=== PATIENT | male | born 1955 | race Caucasian/White ===

== ENCOUNTER 2020-03-18 07:10 | Day surgery (SDC) | payer MEDICARE, BC ==
[~2020-03-18] VITALS: Ht 177.8 cm; Wt 100.0 kg
[2020-03-18 07:50] LABS: HEMATOCRIT 39.6 % (42.0-54.0); HEMOGLOBIN 12.9 g/dL (13.5-17.5); MCHC 32.6 g/dL (31.0-37.0); MCV 104.5 fL (80.0-100.0); MEAN PLATELET VOLUME 9.1 fL (7.4-10.4); RBC 3.79 10x6/uL (4.20-6.10); RDW 13.8 % (11.5-14.5); WBC 5.3 10x3/uL (4.8-10.8)
[2020-03-18 08:01] LABS: ANION GAP 7.7 mmol/L (8-16); CREATININE - SERUM 1.5 mg/dL (0.6-1.3); POTASSIUM - SERUM 3.7 mmol/L (3.5-5.1)
[2020-03-18] MEDS ORDERED: ZYLOPRIM300 MG PO (08:03)
[2020-03-18] MEDS ORDERED: BAYER CHEWABLE81 MG PO (08:04)
[2020-03-18] MEDS ORDERED: CALCIUM 600 +1 EAC3 PO (08:04)
[2020-03-18] MEDS ORDERED: VOLTAREN75 MG PO (08:05)
[2020-03-18] MEDS ORDERED: FLUTICASONE PRO16 GM NASAL (08:05)
[2020-03-18] MEDS ORDERED: ZYRTEC10 MG PO (08:06)
[2020-03-18] MEDS ORDERED: GABAPENTIN300 MG PO (08:06)
[2020-03-18] MEDS ORDERED: LISINOPRIL2.5 MG PO (08:07)
[2020-03-18] MEDS ORDERED: MECLIZINE HCL25 MG PO (08:07)
[2020-03-18] MEDS ORDERED: LEVOXYL25 MCG PO (08:07)
[2020-03-18] MEDS ORDERED: ZOCOR40 MG PO (08:08)
[2020-03-18] MEDS ORDERED: PROTONIX40 MG PO (08:08)
[2020-03-18] MEDS ORDERED: GLUCOPHAGE500 MG PO (08:08)
[2020-03-18] MEDS ORDERED: THERALITH XR T1 EACH PO (08:09)
[2020-03-18] MEDS ORDERED: VITAMIN C500 M1 PO (08:09)
[2020-03-18 08:19] VITALS: BP 124/66; Ht 177.8 cm; Wt 100.0 kg
--- NOTE | 2020-03-18 12:03 | NUR ---
1110 DRESSED, AWAKE & ALERT. GIVEN DISCHARGE INFORMATION INCLUDING: MED REC, [facility] POST ENDOSCOPIC D/C INSTRUCTIONS, HIGH FIBER DIET INFORMATIONS. ELECTRONIC PRESCRIPTION FOR DICYCLOMINE 20MG REVIEWED WITH PATIENT. TO PRIVATE CAR PER WHEELCHAIR BY THIS NURSE. HOME WITH , NAY PAYNE. Osvaldo HALE R.N.
--- NOTE | 2020-03-19 14:16 | OP ---
PATIENT NAME: MARGARET PAYNE MEDICAL RECORD: [id number] :53 LOCATION:[facility] ADMISSION DATE: SURGEON: CHERRIE MG DO DATE OF OPERATION: 03/18/2020 PROCEDURE: Colonoscopy. INDICATIONS FOR PROCEDURE: Bloating symptom, irregular bowel habits, family history positive for cancer of the GI tract in the patient's father. SCOPE: Olympus video pediatric colonoscope. MEDICATIONS: Propofol 300 mg IV per anesthesia. WITHDRAWAL TIME: 9 minutes. ESTIMATED BLOOD LOSS: None. COMPLICATIONS: None. FINDINGS: Informed consent was given. The patient was made comfortable with the above medication. After reaching an adequate level of sedation by slow IV push, the patient was placed on his left side. A digital rectal examination was performed and noted some benign prostatic hyperplasia, but there were no nodules or other abnormalities palpated on the prostate. The endoscope was advanced under direct visualization through the rectum to the cecum, confirmed by the presence of the appendiceal orifice and ileocecal valve. The endoscope was slowly withdrawn and mucosa was carefully examined. The prep quality was poor and made some visualization of some areas of the colon extremely difficult. Time was spent trying to washout and aspirate some remaining stool and this was possible in some areas, but impossible in others. There were no polyps visualized on today's examination. There was extensive diverticulosis without diverticulitis involving the descending and sigmoid colon. Retroflexion was performed in the rectum with visualization of grade I internal hemorrhoids without bleeding. The endoscope was withdrawn from the patient. The patient tolerated the procedure well and there were no complications. IMPRESSION: 1. Moderate diverticulosis of the descending and sigmoid colon. 2. Grade I internal hemorrhoids without bleeding. 3. Poor prep. PLAN AND RECOMMENDATIONS: 1. Discharge home when recovery parameters are met. 2. High fiber diet. 3. Supplement diet with 1 tablespoon of psyllium husk fiber daily. 4. Continue current medications. 5. Trial of dicyclomine 20 mg t.i.d. p.r.n. loose stools or some abdominal pain and cramping. 6. Recommend a repeat colonoscopy in 1-2 years due to the poor prep encountered on today's examination. I recommend split prep with the patient scheduled for procedure at 10:00 a.m. or later in the day. 7. Follow up in GI clinic in 1 month. TRANSINT:[id number] Voice Confirmation ID: [id number] DOCUMENT ID: [id number] OPERATIVE REPORT [id number] MARGARET PAYNE,CHERRIE Bradshaw DO at 1416 CC: [id number] DICTATION DATE: 03/18/20 1008 [employer]IM[employer] TECHNICIAN: 03/18/20 1939 [facility] [address] [place] [id number]
== END 2020-03-18 14:15 | disposition home or self-care (01) ==
LOC: D.OPS 07:10
PROVIDERS: Anesthesiology; ATTEND Internal Medicine Gastroenterology
DX: R14.0 Abdominal distension (gaseous) (principal); R19.4 Change in bowel habit; Z80.0 Family history of malignant neoplasm of digestive organs; K64.0 First degree hemorrhoids; E11.9 Type 2 diabetes mellitus without complications; Z79.84 Long term (current) use of oral hypoglycemic drugs; K21.9 Gastro-esophageal reflux disease without esophagitis

== ENCOUNTER 2020-04-22 10:16 | Day surgery (SDC) | payer MEDICARE, BC ==
[~2020-04-22] VITALS: Ht 177.8 cm; Wt 90.0 kg
[~2020-04-22 10:16] MED LIST: BAYER CHEWABLE81 MG PO; CALCIUM 600 +1 EAC3 PO; FLUTICASONE PRO16 GM NASAL; GABAPENTIN300 MG PO; GLUCOPHAGE500 MG PO; LEVOXYL25 MCG PO; LISINOPRIL2.5 MG PO; MECLIZINE HCL25 MG PO; PROTONIX40 MG PO; THERALITH XR T1 EACH PO; VITAMIN C500 M1 PO; VOLTAREN75 MG PO; ZOCOR40 MG PO; ZYLOPRIM300 MG PO; ZYRTEC10 MG PO
[2020-04-22 11:26] LABS: ALBUMIN 3.7 g/dL (3.4-5.0); ANION GAP 8.2 mmol/L (8-16); BILIRUBIN - TOTAL 0.47 mg/dL (0.2-1.3); CALCIUM 8.9 mg/dL (8.5-10.1); CARBON DIOXIDE 30.3 mmol/L (21.0-32.0); CREATININE - SERUM 1.4 mg/dL (0.6-1.3); POTASSIUM - SERUM 4.5 mmol/L (3.5-5.1); PROTEIN - SERUM 7.1 g/dL (6.4-8.2)
[2020-04-22 11:33] LABS: APTT 30.2 SECONDS (22.8-39.4); INR 1.05 (0.85-1.17); PROTIME 13.6 SECONDS (11.6-15.0)
[2020-04-22 11:37] VITALS: BP 111/67; Ht 177.8 cm; Wt 90.0 kg
[2020-04-22 11:39] LABS: BASOPHILS 0.5 % (0-2); EOSINOPHILS 1.2 % (0-7); HEMOGLOBIN 11.6 g/dL (13.5-17.5); IMMATURE GRANULOCYTES 0.2 % (0-5); LYMPHOCYTES 20.4 % (15-50); MCH 33.1 pg (26.0-34.0); MCHC 31.4 g/dL (31.0-37.0); MCV 105.7 fL (80.0-100.0); MEAN PLATELET VOLUME 9.3 fL (7.4-10.4); MONOCYTES 8.4 % (2-11); NEUTROPHILS 69.3 % (40-80); PLATELET COUNT 192 10x3/uL (130-400); RDW 14.3 % (11.5-14.5); WBC 4.3 10x3/uL (4.8-10.8)
--- NOTE | 2020-04-22 14:00 | NUR ---
1324 IV DC'D/CATHETER TIP INTACT. NO BLEEDING AT SITE. BANDAID APPLIED. 1330 REVIEWED DISCHARGE INSTRUCTIONS WITH PT AND HIS . BOTH VOICED UNDERSTANDING OF INSTRUCTIONS.
--- NOTE | 2020-04-23 06:47 | OP ---
PATIENT NAME: MARGARET PAYNE MEDICAL RECORD: [id number] :53 [facility] DATE: SURGEON: CHERRIE MG DO DATE OF OPERATION: 04/22/2020 PROCEDURE: EGD with biopsies. INDICATIONS FOR PROCEDURE: GERD and pain provoked by eating. SCOPE: Olympus video gastroscope. MEDICATIONS: Propofol 220 mg IV per anesthesia. ESTIMATED BLOOD LOSS: Minimal. COMPLICATIONS: None. FINDINGS: Informed consent was given. The patient was made comfortable with the above medication. After reaching an adequate level of sedation by slow IV push, the patient was placed on his left side. The endoscope was advanced under direct visualization through the mouth to the second portion of the duodenum with ease. In the esophagus, there was diffuse esophageal candidiasis. Cold forceps, biopsies were taken from the midesophagus to rule out the presence of eosinophils. At the GE junction, there were minor changes consistent with LA class A reflux-induced esophagitis. The endoscope was advanced into the stomach beyond the GE junction and retroflexed to view the cardia and fundus. There was a very small sliding hiatal hernia. There were multiple benign-appearing fundic gland gastric polyps located throughout the fundus and body of the stomach. A cold forceps biopsy was taken from 1 polyp to confirm its benign nature. Cold forceps biopsies were also taken from the antrum and incisura to submit for histopathology. The endoscope was advanced beyond the pylorus into the duodenum, which appeared normal to the second portion. The cold forceps biopsies were taken randomly from the duodenum to submit for histopathology. The endoscope was withdrawn from the patient. The patient tolerated the procedure well and there were no complications. IMPRESSION: 1. Diffuse candidal esophagitis. 2. LA class A reflux-induced esophagitis. 3. Very small sliding hiatal hernia. 4. Multiple fundic gland polyps. PLAN AND RECOMMENDATIONS: 1. Discharge home when recovery parameters are met. 2. Follow up biopsy specimen results. 3. GERD diet and reflux precautions. 4. Continue current medications. 5. Consider surgical referral for antireflux procedure and also consider a pH study with an LPRD probe to rule out laryngopharyngeal reflux disease. 6. Consider gastric emptying scan based on the patient's upper digestive symptoms of bloating and pain with eating. 7. Follow up in GI clinic in 1 month. TRANSINT:[id number] Voice Confirmation ID: [id number] DOCUMENT ID: [id number] OPERATIVE REPORT [id number] MARGARET PAYNE NATHAN A DO at 0647 CC: [id number] DICTATION DATE: 04/22/20 1245 ACCOUNT ANALYST: 04/22/20 2316 [facility] 04/22/20 [place] [id number]
== END 2020-04-22 13:46 | disposition home or self-care (01) ==
LOC: D.OPS 10:16
PROVIDERS: Anesthesiology; ATTEND Internal Medicine Gastroenterology
DX: K21.9 Gastro-esophageal reflux disease without esophagitis (principal); E11.9 Type 2 diabetes mellitus without complications; Z79.84 Long term (current) use of oral hypoglycemic drugs; E07.9 Disorder of thyroid, unspecified; R14.0 Abdominal distension (gaseous); R19.4 Change in bowel habit

== ENCOUNTER 2020-04-30 07:17 | Outpatient (CLI) | payer MEDICARE, BC ==
[2020-04-22 11:37] VITALS: BMI 28.4
== END 2020-04-30 07:18 | disposition home or self-care (01) ==
LOC: D.OPS 07:17
PROVIDERS: ATTEND Internal Medicine Gastroenterology
DX: R49.0 Dysphonia (principal); K21.9 Gastro-esophageal reflux disease without esophagitis